=== PATIENT | female | born 1985 | race Caucasian/White ===

== ENCOUNTER 2018-04-12 23:00 | Emergency (ER) | payer OTHER ==
[~2018-04-12] VITALS: Ht 170.2 cm; Wt 68.2 kg
[2018-04-12 23:09] VITALS: BP 136/86
== END 2018-04-12 23:53 | disposition left against medical advice (07) ==
LOC: EMS 23:03
DX: R06.02 Shortness of breath (principal); R06.4 Hyperventilation; R10.9 Unspecified abdominal pain; R07.9 Chest pain, unspecified; Z53.21 Procedure and treatment not carried out due to patient leaving prior to being seen by health care provider